=== PATIENT | male | born 2000 | race Two or more races ===

== ENCOUNTER 2024-08-07 20:34 | Emergency (ER) | payer OTHER ==
[~2024-08-07] VITALS: Ht 182.9 cm; Wt 62.7 kg
--- NOTE | 2024-08-07 21:14 | ED.PDOC ---
History of Present Illness HPI Comments 24 y/o M presents with c/o bite puncture wound to left hand, today. Patient endorses on sustaining a bite from his pet dog, earlier, this evening. He comments on vaccination of said animal, recently, expiring, and does not recollect when his last tetanus shot was administered. Patient denies having any additional injuries, fever, chills, pain, or other associated symptoms or modifiers at this time. Vital signs were stable. Chief Complaint: Animal Bite Time Seen by MD: 21:11 Reviewed Notes: Nurses Notes, Medications, Allergies Information Source: Patient Mode of Arrival: Ambulatory Severity: Moderate Timing: Hours Duration: Since onset Prehospital treatment: None Past Medical History PAST MEDICAL HISTORY: Denies Surgical History: Denies all surgeries Family History Family History: Unknown Social History Smoker: Non-Smoker Alcohol: Denies ETOH Use Drugs: Denies Drug Use Lives In: Home Constitutional: denies: chills, diaphoresis, fatigue, fever, malaise, sweats, weakness, others EENTM: denies: blurred vision, double vision, ear bleeding, ear discharge, ear drainage, ear pain, ear ringing, eye pain, eye redness, hearing loss, mouth pain, mouth swelling, nasal discharge, nose bleeding, nose congestion, nose pain, photophobia, tearing, throat pain, throat swelling, voice changes, others Respiratory: denies: cough, hemoptysis, orthopnea, SOB at rest, shortness of breath, SOB with excertion, stridor, wheezing, others Cardiovascular: denies: chest pain, dizzy spells, diaphoresis, Dyspnea on exertion, edema, irregular heart beat, left arm pain, lightheadedness, palpitations, PND, syncope, others Gastrointestinal: denies: abdomen distended, abdominal pain, blood streaked bowels, constipated, diarrhea, dysphagia, difficulty swallowing, hematemesis, melena, nausea, poor appetite, poor fluid intake, rectal bleeding, rectal pain, vomiting, others Genitourinary: denies: burning, dysuria, flank pain, frequency, hematuria, incontinence, penile discharge, penile sore, pain, testicle pain, testicle swelling, urgency, others Neurological: denies: dizziness, fainting, headache, left sided numbness, left sided weakness, numbness, paresthesia, pre-existing deficit, right sided numbn ess, right sided weakness, seizure, speech problems, tingling, tremors, weakness, others Musculoskeletal: denies: back pain, gout, joint pain, joint swelling, muscle pain, muscle stiffness, neck pain, others Integumetry: reports: wounds (puncture bite wound to left hand ); denies: bruises, change in color, change in hair/nails, dryness, laceration, lesions, lumps, rash, others Allergic/Immunocompromised: denies: Difficulty Healing, Frequent Infections, Hives, Itching, others Hematologic/Lymphatic: denies: anemia, blood clots, easy bleeding, easy bruising, swollen glands, others Endocrine: denies: excessive hunger, excessive sweating, excessive thirst, excessive urination, flushing, intolerance to cold, intolerance to heat, unexplained weight gain, unexplained weight loss, others Psychiatric: denies: anxiety, bipolar disorder, depression, hopeless, panic disorder, schizophrenia, sleepless, suicidal, others All Other Systems: Reviewed and Negative (negative unless otherwise stated above or in HPI) Physical Exam General Appearance: Moderate Distress (Shows due to left hand pain concerns.), Thin HEENT: Normal ENT Inspection, Pharynx Normal, TMs Normal Neck: Full Range of Motion, Non-Tender, Normal, Normal Inspection Respiratory: Chest Non-Tender, Lungs Clear, No Accessory Muscle Use, No Respiratory Distress, Normal Breath Sounds Cardiovascular: No Edema, No JVD, No Murmur, No Gallop, Normal Peripheral Pulses, Regular Rate/Rhythm Breast Exam: Deferred Gastrointestinal: No Organomegaly, Non Tender, No Pulsatile Mass, Normal Bowel Sounds, Soft Genitalia: Deferred Pelvic: Deferred Rectal: Deferred Extremities: Other (Left hand reveals multiple punctures to the dorsal and palmar aspect of the palm as well as multiple puncture wounds to the 3rd and 4th digit. Crusted blood noted. No active bleed. No tendon involvement.) Neurologic: Alert, No Motor Deficits, Normal Affect, Normal Mood, No Sensory Deficits Cerebellar Function: Normal Reflexes: Normal Skin: Dry, Normal Color, Warm Lymphatic: No Adenopathy Was a procedure done? Was a procedure done?: No Differential Dx Considerations may include: puncture wound, dog bite wound X-Ray, Labs, Meds, VS Vital Signs Date Time Temp Pulse Resp B/P (MAP) Pulse Ox O2 Delivery O2 Flow Rate FiO2 08/07/24 21:09 98.2 89 16 124/83 (97) 96 X-Ray, Labs, Meds, VS Comment Advised patient that he needs to utilize his antibiotics as directed until completion as well as pain medication as needed. Patient's wounds were dressed and advised daily dressing changes. Time of 1ST Reevaluation: 21:29 Reevaluation 1ST: Improved Consultation: PCP Patient Education/Counseling: Diagnosis, Treatment Family Education/Counseling: Diagnosis, Treatment, No Family Present Departure 1 Departure Time of Disposition: 21:29 Impression: Primary Impression: Dog bite of left hand Disposition: HOME / SELF CARE / HOMELESS Condition: Stable Additional Instructions: Advised daily dressing changes and additionally, advise utilizing antibiotics as directed until completion as well as pain medication as needed. e-Prescriptions Acetaminophen (Acetaminophen) 500 Mg Tab 500 MG PO Q4HP PRN, #30 TAB Prov: MARYAM LATHAM PAC 08/07/24 Ibuprofen Micronized (Ibuprofen) 800 Mg Tab 800 MG PO Q8HP PRN, #20 TAB Prov: MARYAM LATHAM PAC 08/07/24 Amoxicillin & Pot Clavulanate (AUGMENTIN TABLET) 875 Mg Tb 875 MG PO BID for 7 Days, #14 TAB Prov: MARYAM LATHAM PAC 08/07/24 Discharged With: Self, Friend Critical Care Note Critical Care Time?: No Stability Stability form required: No Heart Score Heart Score: Heart Score Response (Comments) Value History N/A 0 EKG N/A 0 Age N/A 0 Risk Factors N/A 0 Troponin N/A 0 Total 0 I personally scribed for MARYAM LATHAM PAC ([email or web address]) on 08/07/24 at 21:14. Electronically submitted by Vicente Ho ([email or web address]). MARYAM LATHAM PAC Aug 07, 2024 21:14
[2024-08-07] MEDS ORDERED: AUG875T PO (21:31)
[2024-08-07] MEDS ORDERED: ACET500T58 PO (21:31)
[2024-08-07] MEDS ORDERED: IBUP-1455 PO (21:31)
[2024-08-07 21:57] VITALS: BP 128/82; PULSE 76; RESP 16; TEMP 98.2; O2SAT 97
[2024-08-07] MEDS: IBUPROFEN 800 MG TAB PO ONE (21:59)
[2024-08-07] MEDS: TETANUS-DIPTH-ACEL PERTUSSIS 0.5ML SYR Tdap IM ONE (21:59)
[2024-08-07] MEDS: NEOMYCIN-BACITRACIN-POLYM UNITDOSE PKG TOP OINT TOP ONE (21:59)
== END 2024-08-07 22:05 | disposition home or self-care (01) ==
LOC: ER 20:34
DX: S61.233A Puncture wound without foreign body of left middle finger without damage to nail, initial encounter (principal); S61.235A Puncture wound without foreign body of left ring finger without damage to nail, initial encounter; S61.452A Open bite of left hand, initial encounter; W54.0XXA Bitten by dog, initial encounter; Y93.89 Activity, other specified; Y92.89 Other specified places as the place of occurrence of the external cause; Y99.8 Other external cause status
CPT/HCPCS: 90471; 90715